=== PATIENT | female | born 1965 | race Caucasian/White ===

== ENCOUNTER 2017-06-17 22:00 | Inpatient (IN) | payer BC ==
[~2017-06-17] VITALS: Ht 165.1 cm; Wt 80.3 kg
--- NOTE | ~2017-06-17 | DS ---
Unit #: [id number] #: [id number] Patient: MCKENNA BACH [id number] [place] [address] [id number] MR#: [id number] NAME: MCKENNA BACH. ROOM: P171 Age: 51 Sex: F Admission Date: 06/18/2017 : 1965 Discharge Date: 06/20/2017 Attending Physician: Oliverio Hernandez M.D. Primary Care Physician: Generic Doctor Not In System DISCHARGE SUMMARY REASON FOR ADMISSION Mckenna is a 51-year-old woman who reported increasing hopelessness and helplessness and despair over her relationship. She recently had a medication change from primary care provider but continued to have increasing suicidal ideation and was admitted for stabilization. DIAGNOSTIC STUDIES LABORATORY DATA: Please see hospital chart. HOSPITAL COURSE Mckenna was admitted and placed on suicide precautions. After discussion of potential treatment options, she decided to continue with her current medications and give the newly added Latuda sometime to work. She participated appropriately in unit groups and activities, and her mood improved with a consistent affect. She was able to contract for safety on the date of discharge with no further suicidal ideation or plan. DISCHARGE DIAGNOSES AXIS I: Major depressive disorder, recurrent, severe without psychotic features. AXIS II: No diagnosis. AXIS III: Hypertension. DISCHARGE INSTRUCTIONS Follow up with her private psychiatrist and primary care physician. DISCHARGE MEDICATIONS 1. Celexa 20 mg daily for depression. 2. Effexor XR 150 mg daily for depression. 3. Latuda 40 mg daily for mood stability. 4. Primary care medicines were Zestril 10 mg daily for hypertension, hydrochlorothiazide 12.5 mg daily for hypertension. CONDITION ON DISCHARGE Improved. PROGNOSIS Fair to good. DIET AND ACTIVITY Per primary care doctor. Unit #: [id number] #: [id number] Patient: MCKENNA BACH Dictated by... Mehdi CruzH/alfonso TD: 06/23/2017 10:56 JOB #: [id number] DISCHARGE SUMMARY Page 1 of 1 X Oliverio Hernandez MD X DISCHARGE SUMMARY
--- NOTE | ~2017-06-17 | HP ---
Unit #: [id number] #: [id number] Patient: MIGUEL BACH [id number] [place] [address] [id number] MR#: [id number] NAME: MIGUEL BACH. ROOM: P171 Age: 51 Sex: F Admission Date: 06/18/2017 : 1965 Attending Physician: Oliverio Hernandez M.D. Admitting Physician: Oliverio Hernandez M.D. Primary Care Physician: Generic Doctor Not In System HISTORY AND PHYSICAL HISTORY OF PRESENT ILLNESS The patient is a 51-year-old female admitted to [facility] on 06/18/2017 for suicidal ideations. PAST MEDICAL HISTORY 1. Restless leg syndrome. 2. Hypertension. PAST SURGICAL HISTORY Left knee. SOCIAL HISTORY She is on FMLA. She lives alone. Denies alcohol, tobacco and drug use. FAMILY MEDICAL HISTORY Noncontributory. ALLERGIES No known drug allergies. CURRENT MEDICATIONS Include Effexor, lisinopril, HCTZ, Celexa and Latuda. REVIEW OF SYSTEMS CONSTITUTIONAL: No fever or chills. HEENT: Denies any sore throat, ear pain or runny nose. CARDIOVASCULAR: Denies chest pain, irregular heart rhythm or palpitations. CHEST: Denies shortness of breath or cough. No hemoptysis. GASTROINTESTINAL: Denies nausea, vomiting, diarrhea or chronic constipation. ENDOCRINE: Denies history of increased thirst or urination. No recent significant weight loss or gain. GENITOURINARY: Denies dysuria, frequency, or hematuria. SKIN: Denies any rashes. HEMATOLOGIC: Denies history of increased bleeding or bruising. MUSCULOSKELETAL: Denies any hot, swollen joints. No generalized muscle pain. NEUROLOGIC: Denies problems with vision or speech. No frequent, severe headaches. No numbness, tingling or weakness in any extremities. Denies loss of bladder or bowel control. PHYSICAL EXAM GENERAL: She is awake, alert and oriented in no acute distress. Unit #: [id number] #: [id number] Patient: MIGUEL BACH VITAL SIGNS: Temperature 98.1, heart rate 64, respiration 18, blood pressure 121/84. HEIGHT: 5 foot 5. WEIGHT: 177 pounds. SKIN: Warm and dry without rash or lesion. HEENT: Normocephalic. TMs not viewed. Oral and nasal passages clear. Conjunctivae clear. PERRLA. EOMs intact. NECK: Supple without lymphadenopathy or thyromegaly. HEART: Regular rate and rhythm without murmur. LUNGS: Clear. ABDOMEN: Soft, nontender. : Not done. EXTREMITIES: No evidence of cyanosis, clubbing or edema. Moves all without focal deficit. NEUROLOGICAL: Grossly within normal limits. Cranial Nerves: II: Visual stroud are intact. III, IV AND : Extraocular movements are intact. Pupils are equal, round and reactive to light. V: Facial sensation is grossly normal. VII: Facial movements and expression are normal. VIII: Auditory acuity grossly intact. IX, X: Uvula is midline. Phonation is normal. XI: Patient shrugs shoulders and turns head normally. XII: Tongue protrudes in the midline. Sensory and Motor Function: Sensory and motor sensation is grossly normal. Motor: moves all extremities well. IMPRESSION 1. Psychiatric admission. 2. RLS. 3. Hypertension. RECOMMENDATIONS Psychiatric per psychiatrist. MEDICAL: No contraindication to participate in facility activities. MEDICAL PROGNOSIS Fair. MEDICAL CONDITION Stable. Dictated by... Kortney Braxton/alli TD: 06/19/2017 02:23 JOB #: [id number] Unit #: [id number] #: [id number] Patient: MGIUEL BACH HISTORY AND PHYSICAL Page 1 of 1 X SUSAN DELCID APRN HISTORY AND PHYSICAL
--- NOTE | ~2017-06-17 | PA ---
Unit #: [id number] #: [id number] Patient: MIGUEL MCNAIR [id number] [place] [address] [id number] I MR#: [id number] NAME: MIGUEL MCNAIR. ROOM: P171 Age: 51 Sex: F Admission Date: 06/18/2017 : 1965 Date of Assessment: 06/18/2017 Attending Physician: Oliverio Hernandez M.D. Admitting Physician: Oliverio Hernandez M.D. Primary Care Physician: Generic Doctor Not In System PSYCHIATRIC ASSESSMENT DATE OF SERVICE 06/18/2017. INFORMANTS The patient, reliable; [facility], reliable. CHIEF COMPLAINT Depression and suicidal ideation. HISTORY OF PRESENT ILLNESS Ms. Mcnair is a 51-year-old woman, who reports increasing depression and dysphoria after an infidelity which resulted in a divorce and the of her father. She has increasing hopelessness and helplessness and "did not want to go on living like this." She denied current suicidal intent, but could not contract for safety and was admitted for assessment and stabilization. PAST PSYCHIATRIC HISTORY The patient has been seeing an outpatient psychiatrist, and has been at the [facility] in the past for suicidal ideation. She is currently taking citalopram, Latuda and Effexor. The Latuda was just initiated. FAMILY PSYCHIATRIC HISTORY The patient reports that "all the women" in her family suffer from depression. SOCIAL HISTORY The patient denied a history of childhood physical or sexual abuse. She is a woman with no current relationship. She is a high school graduate with some college, who is currently planning to return to work in the near future. She lives alone after her divorce. PAST MEDICAL HISTORY No chronic medical problems. MEDICATIONS None currently. ALLERGIES No known medication allergies. SUBSTANCE USE HISTORY None reported. Unit #: [id number] #: [id number] Patient: MIGUEL MCNAIR MENTAL STATUS EXAMINATION Ms. Andres presented as a mildly disheveled woman, who appeared her stated age. She was cooperative with the examination. Her speech was spontaneous and easily understood. Her musculoskeletal examination was calm. Her mood was depressed with a congruent affect. She was alert and fully oriented. Her memory and concentration were intact. Her thought processes were logical with no active psychosis. She reported suicidal ideation with no specific plan, but could not contract for safety outside the hospital. Insight and judgment were fair. Fund of knowledge and abstraction were fair. ASSETS AND LIABILITIES The patient is familiar with local resources and has an active therapy and psychiatric relationship and is voluntary for treatment. Liabilities include lack of response to current medication and social stressors. ADMITTING DIAGNOSIS AXIS I: Major depression, F33.2. AXIS II: No diagnosis. AXIS III: Hypertension. AXIS IV: AXIS V: PSYCHIATRIC PLAN The patient was admitted and placed on suicide precautions. After discussion of her of possible treatment options, she agreed to continue her current medications and gives the Latuda time to have benefit. In the meantime, she was going to participate in psychotherapy groups and activities, physical examination and laboratory studies have been ordered and reviewed. TREATMENT GOALS Resolution of suicidal ideation, improvement in mood, improvement in insight, and improvement in coping skills. DISCHARGE PLANNING Follow up with [facility]. ESTIMATED LENGTH OF STAY 5 days. Dictated by... Oliverio Hernandez M.D. EMMIE/radha TD: 06/23/2017 15:28 JOB #: [id number] Unit #: [id number] #: [id number] Patient: MIGUEL MCNAIR PSYCHIATRIC ASSESSMENT Page 1 of 1 X Oliverio Hernandez MD PSYCHIATRIC ASSESSMENT
--- NOTE | ~2017-06-17 | PN ---
Unit #: [id number] #: [id number] Patient: MCKENNA BACH [id number] [facility] [address] [place] [address] [id number] MR#: [id number] NAME: MCKENNA BACH. ROOM: P171 Age: 51 Sex: F Admission Date: 06/18/2017 : 1965 Attending Physician: Oliverio Hernandez M.D. Admitting Physician: Oliverio Hernandez M.D. Primary Care Physician: Generic Doctor Not In System [facility] PROGRESS NOTES DATE 06/19/2017 DISCUSSION Mckenna continues to complain of some depression and anxiety. Her mood is congruent with a congruent affect. She is alert and fully oriented. Her memory and concentration are [id number]. Her thought processes are goal-directed with no evidence of psychosis. She says that she is feeling a little bit better but continues to be unable to contract for safety. ASSESSMENT Major depressive disorder. PLAN Continue introduction of current medications with an increase in Effexor XR 225 mg daily. Dictated by... Mehdi Cruz/christian TD: 06/23/2017 06:04 JOB #: [id number] [facility] PROGRESS NOTES Page 1 of 1 X Oliverio Hernandez MD PROGRESS NOTE
[2017-06-19 09:46] LABS: BASOPHIL# 0.1 X10e3 (0-0.3); EOSINOPHIL# 0.1 X10e3 (0-0.7); EOSINOPHIL% 2.2 % (0.0-7.0); HEMATOCRIT 40.6 % (35.0-45.0); HEMOGLOBIN 13.2 gm/dL (12.0-16.0); LYMPHOCYTE# 2.3 X10e3 (1.0-3.5); LYMPHOCYTE% 38.9 % (17.0-45.0); MEAN CELL VOLUME 96.6 FL (83-96); MEAN CORPUSCULAR HEMOGLOBIN 31.4 PG (28-34); MEAN CORPUSCULAR HGB CONC 32.5 g/dL (30-36); MEAN PLATELET VOLUME 7.4 FL (6.5-11.5); MONOCYTE# 0.5 X10e3 (0-1.0); MONOCYTE% 8.5 % (3.0-12.0); NEUTROPHIL# 2.9 X10e3 (1.5-7.1); NEUTROPHIL% 49.4 % (40-75); PLATELET COUNT 354 X10e3 (140-420); RED CELL DISTRIBUTION WIDTH 14.5 % (11.0-15.5)
[2017-06-19 09:50] LABS: DIFF IND NO
[2017-06-19 09:51] LABS: URINE APPEARANCE CLEAR; URINE BILIRUBIN NEG (NEG); URINE BLOOD NEG (NEG); URINE COLOR YELLOW; URINE GLUCOSE NEG (NEG); URINE KETONE NEG (NEG); URINE LEUKOCYTE ESTERASE NEG (NEG); URINE NITRATE NEG (NEG); URINE PROTEIN NEG (NEG); URINE SPECIFIC GRAVITY 1.007 (1.003-1.035); URINE UROBILINOGEN 0.2 MG/DL (NEG)
[2017-06-19 10:05] LABS: ALBUMIN SERUM 3.5 g/dL (3.5-5.0); BILIRUBIN,TOTAL 0.7 mg/dL (0.2-2.0); BUN/CREATININE RATIO 22.5; CALCIUM SERUM 9.4 mg/dL (8.4-10.2); CREATININE SERUM 0.8 mg/dL (0.6-1.4); POTASSIUM 4.5 mmol/L (3.5-5.1); PROTEIN TOTAL SERUM 6.2 g/dL (6.0-8.3)
[2017-06-19 10:09] LABS: AMPHETAMINE NEG (NEG); BARBITURATES NEG (NEG); BENZODIAZEPINES NEG (NEG); COCAINE NEG (NEG); MARIJUANA NEG (NEG); OPIATES NEG (NEG); TRICYCLIC ANTIDEPRESSANTS NEG (NEG); U METHADONE NEG (NEG)
== END 2017-06-21 09:00 | DRG 881 ==
LOC: P1E 06-18 04:32
PROVIDERS: Psychiatry & Neurology Psychiatry
DX: F32.9 Major depressive disorder, single episode, unspecified (principal); R45.851 Suicidal ideations; I10 Essential (primary) hypertension; G25.81 Restless legs syndrome
CPT/HCPCS: 80053; 80307; 81003; 85025